=== PATIENT | female | born 1970 | race Hispanic/Latino ===

== ENCOUNTER 2018-02-03 18:59 | Emergency (ER) | payer BC ==
[~2018-02-03] VITALS: Ht 165.1 cm; Wt 75.3 kg
[2018-02-03] MEDS ORDERED: FAMOTIDINE 20 MG/2 ML VIAL IV STA (19:23)
[2018-02-03] MEDS ORDERED: DIPHENHYDRAMINE HCL INJ 50 MG/ML VIAL IV ONE (19:30)
[2018-02-03] MEDS ORDERED: METHYLPREDNISOLONE SOD SUCC 125 MG/2ML VIAL IV ONE (19:30)
== END 2018-02-03 20:53 | disposition home or self-care (01) ==
LOC: ER 18:59
DX: L50.0 Allergic urticaria (principal); I10 Essential (primary) hypertension; K21.9 Gastro-esophageal reflux disease without esophagitis
CPT/HCPCS: 96374; 96375; 99283; J1200; J2930

== ENCOUNTER 2018-02-04 14:36 | Emergency (ER) | payer BC ==
[~2018-02-04] VITALS: Ht 165.1 cm; Wt 75.3 kg
[2018-02-04 15:05] VITALS: BP 131/86
== END 2018-02-04 15:15 | disposition home or self-care (01) ==
LOC: ER 14:36
DX: R21 Rash and other nonspecific skin eruption (principal)
CPT/HCPCS: 99282